=== PATIENT | male | born 1965 | race Caucasian/White ===

== ENCOUNTER 2016-12-11 21:20 | Emergency (ER) | payer OTHER ==
[~2016-12-11] VITALS: Ht 165.1 cm; Wt 88.5 kg
[2016-12-11 21:21] VITALS: BP_SYST 172
[2016-12-11 21:36] LABS: BASOPHILS % (AUTO) 0.4 % (0.0-2.0); EOSINOPHILS # (AUTO) 0.2 K/uL (0.0-0.4); EOSINOPHILS % (AUTO) 1.7 % (0.0-4.0); HEMATOCRIT 50.2 % (36-54); HEMOGLOBIN 16.4 g/dL (14.0-18.0); LYMPHOCYTES # (AUTO) 2.2 K/uL (1.0-5.5); LYMPHOCYTES % (AUTO) 21.8 % (20.5-51.5); MEAN CORPUSCULAR HEMOGLOBIN 30 pg (27-31); MEAN CORPUSCULAR HGB CONC 33 % (32-36); MEAN CORPUSCULAR VOLUME 93 fL (79.0-98.0); MONOCYTES # (AUTO) 0.5 K/uL (0.0-1.0); MONOCYTES % (AUTO) 4.9 % (1.7-9.3); NEUTROPHILS % (AUTO) 71.2 % (40.0-70.0); PLATELET COUNT (AUTO) 196 K/uL (130-430); RED BLOOD CELL COUNT(AUTO) 5.42 MIL/uL (4.2-6.2); RED CELL DISTRIBUTION WIDTH 13.3 % (9.0-15.0); WHITE BLOOD COUNT (AUTO) 9.9 K/uL (4.8-10.8)
[2016-12-11 21:50] LABS: CALCIUM 9.4 mg/dL (8.4-11.0); CREATININE 1.29 mg/dL (0.55-1.30); POTASSIUM 3.8 mmol/L (3.5-5.1)
[2016-12-11 21:53] LABS: PROTHROMBIN TIME 10.4 SECS (9.5-12.5)
[2016-12-11 21:56] LABS: ALBUMIN 4.4 g/dL (3.4-4.8); TOTAL BILIRUBIN 0.3 mg/dL (0.0-1.0); TOTAL PROTEIN, SERUM 8.1 g/dL (6.4-8.3)
[2016-12-11 22:04] LABS: CHOL/HDL RATIO 5.9 (>4.5)
[2016-12-11] MEDS ORDERED: hydrALAZINE HCL 20 MG/ML VIAL IVP ONE (22:15)
[2016-12-11] MEDS ORDERED: ALTEPLASE 100 MG VIAL IV ONE (22:15)
[2016-12-11] MEDS ORDERED: ALTEPLASE 100 MG IV ONE (22:29)
[2016-12-11] MEDS ORDERED: LORazepam 2 MG/ML VIAL (FOR ER USE) IVP ONE (23:00)
[2016-12-11 23:25] VITALS: BP_SYST 151
== END 2016-12-11 23:25 | disposition short-term general hospital (02) ==
LOC: SED 21:20
DX: I63.9 Cerebral infarction, unspecified (principal); G81.91 Hemiplegia, unspecified affecting right dominant side; I10 Essential (primary) hypertension
CPT/HCPCS: 36415; 70450; 71010; 80053; 80061; 84484; 85025; 85610; 85730; 93005; 96365; 96374; 96375; 99291; J0360; J2060; J2997; J7030